=== PATIENT | male | born 1975 | race Caucasian/White ===

== ENCOUNTER 2020-06-17 22:39 | Emergency (ER) | payer MEDICARE, MEDICAID ==
--- NOTE | 2020-06-17 22:47 | NUR ---
PT VERBALY THREATENED STAFF AND RAISED FIST MULTIPLE TIME AT STAFF AND DEMANDED TO ,EAVE. PT WALKED WITH STEADY GAIT. PT IV REMOVED FROM RIGHT ARM FROM [facility]. PT DENIED ANY PAIN AND DENIED WANTING WOUND CARE TO SMALL 1CM LAC TO CHIN. PT A/O X4 AND WALKED TO EXIT WITHOUT ASSISTANCE. PT STATED "HE IS NOT A BUMB AND CAN PAY FOR HIS OWN CAB AND HOTEL ROOM"
== END 2020-06-17 23:45 | disposition left against medical advice (07) ==
LOC: ED 23:00
DX: Z53.21 Procedure and treatment not carried out due to patient leaving prior to being seen by health care provider (principal)